=== PATIENT | male | born 1975 | race Two or more races ===

== ENCOUNTER 2022-06-18 11:29 | Emergency (ER) | payer MEDICAID ==
[~2022-06-18] VITALS: Ht 198.1 cm; Wt 242.9 kg
[~2022-06-18 11:29] MED LIST: CLIN300C8 PO; INSUINJ; NOVALIN 70/30
[2022-06-18 14:00] VITALS: BP 135/49
[2022-06-18] MEDS ORDERED: cefTRIAXone SOD 1,000 MG VL IM ONE (14:30)
[2022-06-18] MEDS ORDERED: LIDOCAINE VISCOUS 2% 15ML UD PO ONE (14:30)
[2022-06-18] MEDS ORDERED: AMOX-277 PO (15:59)
[2022-06-18] MEDS ORDERED: BENZ1LOZ3 MT (16:08)
[2022-06-18] MEDS ORDERED: LIDO2SOL18 MT (16:08)
[2022-06-18] MEDS ORDERED: ACET1CAP14 PO (16:09)
== END 2022-06-18 16:35 | disposition home or self-care (01) ==
LOC: ER 11:29
DX: J03.80 Acute tonsillitis due to other specified organisms (principal); B96.89 Other specified bacterial agents as the cause of diseases classified elsewhere; E11.9 Type 2 diabetes mellitus without complications; Z87.891 Personal history of nicotine dependence
CPT/HCPCS: 87070; 87880; 96372; 99283; J0696